=== PATIENT | female | born 1970 | race Hispanic/Latino ===

== ENCOUNTER 2019-11-21 13:46 | Emergency (ER) | payer OTHER ==
[~2019-11-21] VITALS: Ht 157.5 cm; Wt 70.3 kg
[~2019-11-21 13:46] MED LIST: NO MEDS
--- OUTSIDE RECORDS SUMMARY | 2019-11-21 13:50 | XMS REPORT | Encounter Summary ---
Author Organization Unknown Address [address] [place] [address] Phone [phone] Care Team Providers Care Motorboat Mechanic Inboard/Outboard Name Role Phone Dr. Harsh Hicks 3 [phone] Reason for Visit Bilateral knee pain/problem; other - see typed reason Instructions 1. Low back pain XR, lumbar spine 2. Bilateral knee pain XR, knee, 1 or 2 view - [place]an Speaking Please call patient and schedule her appointment. 3. Paresthesia of upper limb electromyogram/nerve conduction referral - *Please call the patient and schedule 4. Screening for malignant neoplasm of breast MAMMO, screening, digital, bilateral - [place]an Speaking Please call patient and schedule her an appointment. 5. Screening for malignant neoplasm of colon fecal occult blood, stool colonoscopy referral - [place]an Speaking Please call patient and schedule her an appointment. 6. Screening for malignant neoplasm of cervix gynecology referral - [place]an Speaking Please call patient and schedule her an appointment. 7. Immunization Adacel (Tdap Adolesn/Adult)(PF)2 Lf-(2.5-5-3-5)-5 Lf/0.5 mL IM syringe 8. Body mass index 25-29 - overweight aprenda acerca del peso saludable - [learning about healthy weight] 9. Overweight Discussion Note: None recorded. Plan of Care Reminders Provider Appointments None recorded. Lab Fecal Occult Blood, Stool 03/10/2019 [facility] Laboratory Referral Colonoscopy Referral 03/10/2019 [facility] Gynecology Referral 03/10/2019 Dima Sidhu Sr., MD Electromyogram/nerve Conduction Referral 03/10/2019 [facility] [employer] (Neurology) Procedures None recorded. Surgeries None recorded. Imaging MAMMO, Screening, Digital, Bilateral 03/10/2019 [facility] XR, Knee, 1 or 2 View 03/10/2019 [facility] Scheduling XR, Lumbar Spine 03/10/2019 [facility] Central Scheduling Medications Name Start Date deflazacort 6 mg tablet Take 1 tablet every day by oral route for 14 days. Medications Administered None recorded. Vitals Height Weight BMI Blood Pressure 5 ft 2 in 161.2 lbs 29.5 kg/m2 126/68 mm[Hg] Lab Results None recorded. Allergies Code Code System Name Reaction Severity Status Onset NKDA Problems No Known Problems Procedures Date Name Performed by Hysterectomy (Partial) Information not available 03/10/2019 MAMMO, Screening, Digital, Bilateral [facility] [address] [place] [address] (Work Place) 03/10/2019 XR, Knee, 1 or 2 View [facility] Scheduling [address] [place] [address] (Work Place) 03/10/2019 XR, Lumbar Spine [facility] Scheduling [address] [place] [address] (Work Place) Vaccine List Vaccine Type Tdap 03/10/20190.5 mL Social History Smoking Status Never Smoker Past Encounters 03/10/2019 Low Back Pain; Bilateral Knee Pain; Paresthesia of Upper Limb; Screening for Malignant Neoplasm of Breast; Screening for Malignant Neoplasm of Colon; Screening for Malignant Neoplasm of Cervix; Immunization; Body Mass Index 25-29 - Overweight; Overweight Harsh Cameron Morse MD: [address] [place] [address], Ph. History of Present Illness Note:Bilateral knee pain since 2 years ago, getting progressively worse since 2 weeks ago. Concomitantly, bilateral knee swelling. Denies erythema or warmth. Fluid was drained in [place] 2 weeks ago and she received steroid injections in both knees. Pain intensity today: 5-9/10. <div>L arm numbness and tingling since 1 week ago. Denies wrist pain. </div> Review of Systems Comprehensive General Adult ROS Reported By: Patient Constitutional: Constitutional: no fever Eyes: Eyes: no vision change Cardiovascular: Cardiovascular: no chest pain, no palpitations, no lightheadedness Respiratory: Respiratory: no cough, no wheezing, no shortness of breath Gastrointestinal: Gastrointestinal: no abdominal pain, no nausea, no vomiting, no constipation, no diarrhea Musculoskeletal: Musculoskeletal: no swelling in the extremities, muscle aches, arthralgias/joint pain, back pain Integumentary: Skin: no rashes Neurologic: Neurologic: no loss of consciousness, no headaches Psychiatric: Psych: no depression, no alcohol abuse, no anxiety, no suicidal thoughts Endocrine: Endocrine: no fatigue Physical Exam General Adult Exam (male) Reported By: Patient Constitutional: General Appearance: healthy-appearing, overweight. Level of Distress: NAD. Ambulation: ambulating normally Psychiatric: Insight: good judgement. Mental Status: active and alert, normal mood, normal affect. Orientation: to time, to place, to person. Memory: recent memory normal, remote memory normal Eyes: Lids and Conjunctivae: non-injected, no discharge Neck: Neck: supple, trachea midline. Thyroid: no enlargement, non-tender Lungs: Auscultation: breath sounds normal Cardiovascular: Heart Auscultation: RRR, normal S1, normal S2, no murmurs. Neck vessels: no carotid bruits Musculoskeletal:: Motor Strength and Tone: normal, normal tone. Joints, Bones, and Muscles: normal movement of all extremities, no contractures, no bony abnormalities, no malalignment; KNEES: tenderness with palpation in the joint line. Bilateral swelling. No erythema or warmth. Negative anterior and posterior drawer signs. Normal valgus and varus stress test.L WRIST: positive Tinel's sign Neurologic: Gait and Station: normal gait Skin: Inspection and palpation: no rash, no lesions Back: Thoracolumbar Appearance: ; tenderness with palpation in the lumbar area. Normal ROM
--- OUTSIDE RECORDS SUMMARY | 2019-11-21 13:50 | XMS REPORT | Encounter Summary ---
Author Organization Unknown Address [address] [place] [address] Phone [phone] Care Team Providers Care Catholic Priest Name Role Phone Dr. Harsh Hicks 3 [phone] Beau Carter MD 110 [phone] Reason for Visit Annual physical - female Instructions 1. Adult health examination CBC w/ auto diff CMP, serum or plasma lipid panel, serum TSH, serum or plasma urinalysis, dipstick 2. Microscopic hematuria urinalysis complete, reflex culture 3. Menopausal flushing FSH (follicle-stimulating hormone), serum 4. Osteoarthritis of knee 5. Screening for malignant neoplasm of colon Discussion Note: None recorded. Patient educational handouts: No information available. Plan of Care Reminders Provider Appointments None recorded. Lab CBC W/ Auto Diff 04/18/2019 [facility] Laboratory CMP, Serum or Plasma 04/18/2019 [facility] Laboratory Lipid Panel, Serum 04/18/2019 [facility] Laboratory TSH, Serum or Plasma 04/18/2019 [facility] Laboratory FSH (Follicle-stimulating Hormone), Serum 04/18/2019 [facility] Laboratory Urinalysis, Dipstick 04/18/2019 [facility] Urinalysis Complete, Reflex Culture 04/18/2019 [facility] Laboratory Referral None recorded. Procedures None recorded. Surgeries None recorded. Imaging None recorded. Medications Name Start Date meloxicam 15 mg tablet Take 1 tablet every day by oral route. Medications Administered None recorded. Vitals Height Weight BMI Blood Pressure 5 ft 2 in 163.3 lbs 29.9 kg/m2 128/80 mm[Hg] Lab Results Date Name Specimen Result Interpretation Description Value Range Status Address Urinalysis, Dipstick Color Glucose negative [facility] ([facility]) Guy: [address] [facility] [place] Color Bilirubin negative [facility]) Guy: [address] [facility] [place] Color Ketones negative [facility]) Guy: [address] [place] Color Specific [place] 1.030 [facility] ([facility] Guy: [address] [place] Color Blood moderate [facility] Guy: [address] [place] Color PH 5.0 [facility] Guy: [address] [place] Color Protein negative [facility] ([facility]) Guy: [address] [place] Color Urobilinogen 0.2 [facility] ([facility]) Guy: [address] [place] Color Nitrites negative [facility] ([facility]) Guy: [address] [place] Color Leukocytes negative [facility] ([facility]) Guy: [address] [place] Allergies Code Code System Name Reaction Severity Status Onset NKDA Problems No Known Problems Procedures Date Name Performed by Hysterectomy (Partial) Information not available Vaccine List Vaccine Type Tdap 03/10/20190.5 mL Social History Tobacco Smoking Status Never Smoker Past Encounters 04/18/2019 Adult Health Examination; Microscopic Hematuria; Menopausal Flushing; Osteoarthritis of Knee; Screening for Malignant Neoplasm of Colon Harsh Morse MD: [address] [place] [phone], Ph. History of Present Illness Note:Coming for a physical exam. Review of Systems Comprehensive General Adult ROS Reported By: Patient Constitutional: Constitutional: no fever, no night sweats, no significant weight gain, no significant weight loss, no exercise intolerance Eyes: Eyes: no dry eyes, no vision change, no irritation ENMT: Ears: no difficulty hearing, no ear pain. Nose: no frequent nosebleeds, no nose problems, no sinus problems. Mouth/Throat: no sore throat, no bleeding gums, no snoring, no dry mouth, no mouth ulcers, no oral abnormalities, no teeth problems Cardiovascular: Cardiovascular: no chest pain, no arm pain on exertion, no shortness of breath when walking, no shortness of breath when lying down, no palpitations, no known heart murmur, no lightheadedness Respiratory: Respiratory: no cough, no wheezing, no shortness of breath, no coughing up blood, no sleep apnea Gastrointestinal: Gastrointestinal: no abdominal pain, no nausea, no vomiting, no constipation, normal appetite, no diarrhea, not vomiting blood, no dyspepsia, no GERD Genitourinary: Genitourinary: no incontinence, no difficulty urinating, no hematuria, no increased frequency Musculoskeletal: Musculoskeletal: no muscle aches, no muscle weakness, no back pain, no swelling in the extremities, arthralgias/joint pain Integumentary: Skin: no abnormal mole, no jaundice, no rashes, no laceration Neurologic: Neurologic: no loss of consciousness, no weakness, no numbness, no seizures, no dizziness, no migraines, no headaches, no tremor Psychiatric: Psych: no depression, no sleep disturbances, feeling safe in a relationship, no alcohol abuse, no anxiety, no hallucinations, no suicidal thoughts Endocrine: Endocrine: no fatigue Hematologic/Lymphatic: Hematologic/Lymphatic no swollen glands, no bruising, no excessive bleeding Allergic/Immunologic: Allergy/Immunologic: no runny nose, no sinus pressure, no itching, no hives, no frequent sneezing Physical Exam General Adult Exam (male) Reported By: Patient Constitutional: General Appearance: healthy-appearing, overweight. Level of Distress: NAD. Ambulation: ambulating normally Psychiatric: Insight: good judgement. Mental Status: active and alert, normal mood, normal affect. Orientation: to time, to place, to person. Memory: recent memory normal, remote memory normal Head: Head: normocephalic, atraumatic Eyes: Lids and Conjunctivae: non-injected, no discharge. EOM: EOMI ENMT: Ears: TMs clear. Nose: no sinus tenderness. Lips, Teeth, and Gums: no mouth or lip ulcers. Oropharynx: moist mucous membranes Neck: Neck: supple, trachea midline. Thyroid: no enlargement, non-tender Lungs: Auscultation: breath sounds normal Cardiovascular: Heart Auscultation: RRR, normal S1, normal S2, no murmurs. Neck vessels: no carotid bruits Abdomen: Inspection and Palpation: soft, non-distended, no tenderness, no guarding Musculoskeletal:: Motor Strength and Tone: normal, normal tone. Joints, Bones, and Muscles: normal movement of all extremities, no contractures, no bony abnormalities, no malalignment. Extremities: no edema Neurologic: Gait and Station: normal gait. Cranial Nerves: grossly intact. Sensation: grossly intact. Reflexes: DTRs 2+ bilaterally throughout. Coordination and Cerebellum: [id number] intact, no tremor Skin: Inspection and palpation: no rash, no lesions Back: Thoracolumbar Appearance: normal curvature
--- OUTSIDE RECORDS SUMMARY | 2019-11-21 13:50 | XMS REPORT ---
Author Author [facility] Address Unknown Phone Unavailable Care Team Providers Care Rabbit Fancier Name Role Phone JOYCE CASPER Unavailable Unavailable Payers Payer Name Policy Type Policy Number Effective Date Expiration Date Problems This patient has no known problems. Allergies, Adverse Reactions, Alerts This patient has no known allergies or adverse reactions. Medications This patient has no known medications. Results Test Description Test Time Test Comments Text Results Atomic Results Result Comments US RENAL RETROPERITONEAL COMP 2019-06-26 11:05:00 [place] [address] Patient Name: NESHA TELLO MR #: [id number] : 1970 Age/Sex: 49/F Req #: [id number] Adm Physician: Ordered by: JOYCE CASPER MD Report #: [id number] Location: Room/Bed: Procedure: [id number] US/US RENAL RETROPERITONEAL COMP Exam Date: 06/26/19 Exam Time: 822 REPORT STATUS: Signed EXAM: Renal Ultrasound INDICATION: [id number] MICROSCOPIC HEMATURIA COMPARISON: None TECHNIQUE: Transverse and longitudinal images of the kidneys and bladder were obtained. FINDINGS: Right Kidney: Length: 11.6 cm Appearance: Normal echogenicity. Collecting system: Moderate hydronephrosis Stones: None Cyst/Mass: None Left Kidney: Length: 11.2 cm Appearance: Normal echogenicity. Collecting system: No hydronephrosis Stones: None Cyst/Mass: None Bladder: No mass or calculi. Bilateral ureteral jets seen. Prevoid volume estimate of 92.2 cc IMPRESSION: Moderate right hydronephrosis. No renal calculi. Signed by: Torres Coates MD on 06/26/2019 11:06 AM Dictated By: TORRES COATES MD 05 Transcribed By: YA on 06/26/191105 COPY TO: JOYCE CASPER MD ABDOMEN-1VIEW (KUB) 2019-06-26 09:22:00 [place] [address] Patient Name: NESHA TELLO MR #: [id number] : 1970 Age/Sex: 49/F Req #: [id number] Adm Physician: Ordered by: JOYCE CASPER MD Report #: [id number] Location: Room/Bed: Procedure: [id number] DX/ABDOMEN-1VIEW (KUB) Exam Date: Exam Time: REPORT STATUS: Signed Exam: KUB - 2 views Indication: Hematuria Comparison: CT abdomen and pelvis of 02/24/2015 Findings: No radiographically apparent renal calculi. The 6 mm calcification in the right pelvis (superior to a more rounded 6 mm phlebolith) could correspond with the right distal ureteral calculus seen on prior CT of 02/24/2015 or alternatively represent new interval phlebolith formation. The osseous structures appear unremarkable. Nonobstructive bowel gas pattern. No free air. Impression: 6 mm calcification in the right pelvis superior to a more rounded 6 mm phlebolith may correspond with previously seen right distal ureteral calculus. Signed by: Torres Coates MD on 06/26/2019 9:25 AM Dictated By: TORRES COATES MD 4 Transcribed By: YA on 06/26/19924 COPY TO: JOYCE CASPER MD - XR KNEE 1 OR 2 V BI 2019-03-17 12:41:00 FAX: Harsh Jay [phone] [place]: O St: REG Name: NESHA TELLO [facility] : 1970 Age/S: 49/F [address] [facility] Unit #: [id number] Loc: [place] [address] Phys: Harsh Armijo MD Acct: [id number] Dis Date: Status: REG CL PHONE #: [phone] Exam Date: 03/17/2019 1150 FAX #: [phone] Reason: M25.561 EXAMS: CPT CODE: [id number] XR KNEE 1 [place] 2 [place] [address] TECHNIQUE - XR KNEE 1 OR 2 V BI . COMPARISON: None provided. HISTORY: 49 years Female M25.561 FINDINGS: Bones: No acute fracture. No dislocation. No suspicious bone lesion. Joints: Mild osteophytes. Mild joint space reduction. No subchondral bone lesions. No bony erosions. Soft tissues: No significant abnormalities. Other: None. IMPRESSION: No acute fracture right or left knee. Mild osteoarthritic changes. at 1241 Reported and signed by: Randall Vargas M.D. CC: Harsh Armijo MD Technologist: Miryam Hernandez (R)scrd Date/Time/By: 03/17/2019 (9750) : By: Pancho Vizcaino D/T: S: 03/17/2019 (6356) PAGE 1 Signed Report - XR L-SPINE 4 + VIEWS 2019-03-17 12:38:00 FAX: Y Harsh Armijo [phone] [place]: O St: REG Name: NESHA TELLO [facility] : 1970 Age/S: 49/F [address] [facility] Unit #: [id number] Loc: [place] [address] Phys: Hasrh Armijo MD Acct: [id number] Dis Date: Status: REG CLI PHONE #: [phone] Exam Date: 03/17/2019 1220 FAX #: [phone] Reason: M54.5 EXAMS: CPT CODE: [id number] XR L-SPINE 4 + VIEWS [id number] TECHNIQUE - XR L-SPINE 4 + VIEWS . COMPARISON: None provided. HISTORY: 49 years Female M54.5 FINDINGS: Bones: Five non-rib bearing lumbar vertebrae. Multilevel osteophytes. No compression fractures. No suspicious focal bone lesion. Alignment: No spondylolisthesis. Intervertebral discs: Multilevel disc height reduction. Facet joints: Multilevel hypertrophic changes in lumbar spine. SI joints: No significant abnormalities. Soft tissues: No abnormalities. Other: None. IMPRESSION: Multilevel degenerative changes. No acute fractures. at 9858 Reported and signed by: Randall Vargas M.D. CC: Harsh Armijo MD Technologist: Nicole Varela; STUDENT TECHNOLOGIST Davidscrd Date/Time/By: 03/17/2019 (0813) : By: Pancho Orig Print D/T: S: 03/17/2019 (7892) PAGE 1 Signed Report
[2019-11-21] MEDS ORDERED: SODIUM CHLORIDE 0.9% 1000ML 1,000 ML IV STA (14:37)
[2019-11-21 15:14] LABS: CLARITY,URINE CLEAR (CLEAR); COLOR,URINE YELLOW (YELLOW)
[2019-11-21 15:15] LABS: BASOPHILS % 0.5 % (0.0-1.0); BILIRUBIN,URINE NEGATIVE (NEGATIVE); EOSINOPHILS # (AUTO) 0.1 (0.0-0.4); EOSINOPHILS % 0.8 % (0.0-6.0); HEMATOCRIT 45.8 % (34.2-44.1); HEMOGLOBIN 15.7 g/dL (12.0-16.0); KETONES,URINE NEGATIVE (NEGATIVE); LEUKOCYTE ESTERASE ,URINE NEGATIVE (NEGATIVE); LYMPHOCYTES # (AUTO) 2.2 (1.0-3.2); LYMPHOCYTES % 35.1 % (18.0-39.1); MEAN CORPUSCULAR HEMOGLOBIN 32.6 pg (28-32); MEAN CORPUSCULAR HGB CONC 34.3 g/dL (31-35); MONOCYTES # (AUTO) 0.7 (0.2-0.8); MONOCYTES % 11.4 % (4.4-11.3); NEUTROPHILS # (AUTO) 3.3 (2.1-6.9); NEUTROPHILS % 51.9 % (38.7-80.0); NITRITE,URINE NEGATIVE (NEGATIVE); PLATELET COUNT 257 x10e3/uL (140-360); PROTEIN,URINE DIPSTICK NEGATIVE (NEGATIVE); RED BLOOD COUNT 4.82 x10e6/uL (3.6-5.1); RED CELL DISTRIBUTION WIDTH 12.8 % (11.7-14.4); URINE UROBILINOGEN 0.2 mg/dL (0.2 - 1)
[2019-11-21 15:25] LABS: BACTERIA,URINE MODERATE /HPF; EPITHELIAL CELLS,URINE MODERATE /LPF
[2019-11-21 15:32] LABS: ALANINE AMINOTRANSFERASE 50 IU/L (0-55); ALBUMIN 4.6 g/dL (3.5-5.0); ALKALINE PHOSPHATASE 116 IU/L (40-150); ANION GAP 10.4 mmol/L (8-16); BLOOD UREA NITROGEN 11 mg/dL (7-26); BUN/CREATININE RATIO 16 (6-25); CALCIUM 9.8 mg/dL (8.4-10.2); CARBON DIOXIDE 30 mmol/L (22-29); CHLORIDE 101 mmol/L (98-107); CREATININE, SERUM 0.69 mg/dL (0.57-1.11); EST GLOMERULAR FILTRATION RATE > 60 ML/MIN (60-); GLUCOSE 84 mg/dL (74-118); LIPASE 43 U/L (8-78); POTASSIUM 3.4 mmol/L (3.5-5.1); SODIUM 138 mmol/L (136-145)
[2019-11-21] MEDS ORDERED: KETOROLAC TROMETHAMINE 30 MG/ML VIAL IV STA (15:44)
--- NOTE | 2019-11-21 18:54 | Diagnostic Imaging Report ---
EXAM: CT Abdomen and Pelvis WITH contrast INDICATION: Abdominal pain, back pain ^abd pain ^[id number] ^1735 COMPARISON: CT abdomen/pelvis, 02/24/2015 TECHNIQUE: Abdomen and pelvis were scanned utilizing a multidetector helical scanner from the lung base to the pubic symphysis after administration of IV contrast. Coronal and sagittal reformations were obtained. Routine protocol was performed. Scan was performed when during portal venous phase. Dose modulation, iterative reconstruction, and/or weight based adjustment of the mA/kV was utilized to reduce the radiation dose to as low as reasonably achievable. IV CONTRAST: 100 mL of Isovue-370 ORAL CONTRAST: None(DLP x 0.015 x size factor) RADIATION DOSE: Total DLP: 311.54 mGy*cm Estimated effective dose: mSv COMPLICATIONS: None FINDINGS: LINES and TUBES: None. LOWER THORAX: Lung bases are clear. Heart size normal. HEPATOBILIARY: No focal hepatic lesions. No biliary ductal dilation. GALLBLADDER: No radio-opaque stones or sludge. No wall thickening. SPLEEN: No splenomegaly. PANCREAS: No focal masses or ductal dilatation. ADRENALS: No adrenal nodules KIDNEYS/URETERS: Kidneys enhance symmetrically. No hydronephrosis. No cystic or solid mass lesions. No stones. GI TRACT: No abnormal distention, wall thickening, or evidence of bowel obstruction. The terminal ileum appears mildly distended and fluid-filled but without inflammatory stranding or wall thickening. The appendix is partially visualized and appears unremarkable. No inflammatory stranding is seen in the right lower quadrant. PELVIC ORGANS/BLADDER: Urinary bladder unremarkable. No discrete abnormal mass in the pelvis. There is a 1.8 cm cystic structure in the left adnexa. There is a 1.8 cm fluid-filled tubular structure in the right adnexa that may represent hydrosalpinx. There is no surrounding inflammatory stranding. LYMPH NODES: No dominant lymph node mass is seen in the abdomen, retroperitoneum or pelvis. VESSELS: Abdominal aorta, IVC and portal system unremarkable. Celiac and SMA are patent. PERITONEUM / RETROPERITONEUM: No pneumoperitoneum or ascites. BONES: No acute or suspicious bony lesions. Degenerative change at L5-S1. SOFT TISSUES: Superficial surrounding soft tissue unremarkable. IMPRESSION: 1. There is a right hydrosalpinx noted. No surrounding inflammatory stranding. 2. The appendix appears normal. 3. No other CT evidence for acute abdominal or pelvic pathology. Staff: Strax Signed by: Dr. Lico Carter M.D. on 11/21/2019 6:51 PM
[2019-11-21] MEDS ORDERED: IOPAMIDOL 370 MG/ML 200 ML INFUS..BTL INJ ONE (19:31)
[2019-11-21] MEDS ORDERED: SODIUM CHLORIDE 0.9% 50ML 50 ML ONE (19:31)
== END 2019-11-21 19:17 | disposition home or self-care (01) ==
LOC: ER 13:46
DX: R10.31 Right lower quadrant pain (principal); R10.32 Left lower quadrant pain; R11.0 Nausea
CPT/HCPCS: 36415; 74177; 80053; 81001; 83690; 85025; 99284; J1885; J7030; Q9967

== ENCOUNTER 2021-05-13 05:42 | Observation (INO) | payer OTHER ==
[2021-05-09 08:52] LABS: BASOPHILS % 0.4 % (0.0-1.0); EOSINOPHILS # (AUTO) 0.1 (0.0-0.4); EOSINOPHILS % 1.7 % (0.0-6.0); HEMATOCRIT 40.7 % (34.2-44.1); HEMOGLOBIN 13.9 g/dL (12.0-16.0); LYMPHOCYTES # (AUTO) 2.7 (1.0-3.2); LYMPHOCYTES % 37.7 % (18.0-39.1); MEAN CORPUSCULAR HEMOGLOBIN 32.2 pg (28-32); MEAN CORPUSCULAR HGB CONC 34.2 g/dL (31-35); MEAN CORPUSCULAR VOLUME 94.2 fL (81-99); MONOCYTES # (AUTO) 0.5 (0.2-0.8); NEUTROPHILS # (AUTO) 3.8 (2.1-6.9); NEUTROPHILS % 52.8 % (38.7-80.0); PLATELET COUNT 209 x10e3/uL (140-360); RED BLOOD COUNT 4.32 x10e6/uL (3.6-5.1); RED CELL DISTRIBUTION WIDTH 12.5 % (11.7-14.4)
[~2021-05-13] VITALS: Ht 157.5 cm; Wt 76.7 kg
[~2021-05-13 05:42] MED LIST changes: +NAPROXEN250 MG PO; +VIT D PO
[2021-05-13] MEDS ORDERED: CELECOXIB 200 MG CAP ONE (06:36)
[2021-05-13] MEDS ORDERED: DEXAMETHASONE SOD PHOS 10 MG/1 ML VIAL ONE (06:37)
[2021-05-13] MEDS ORDERED: SODIUM CHLORIDE 0.9% 50ML 100 ML ONE (06:37)
[2021-05-13] MEDS ORDERED: GABAPENTIN 300 MG CAP ONE (06:37)
[2021-05-13] MEDS ORDERED: Vancomycin IV 1,000 MG ONE (06:51)
[2021-05-13] MEDS ORDERED: SODIUM CHLORIDE 0.9% 500ML 500 ML ONE (06:52)
[2021-05-13] MEDS ORDERED: TRANEXAMIC ACID 1,000 MG/10 ML ML ONE (06:52)
[2021-05-13] MEDS ORDERED: OMEPRAZOLE40 MG PO (06:55)
[2021-05-13] MEDS ORDERED: ROPIVACAINE 246.25 MG, EPINEPHRINE HCL 1:1000 1ML 0.5 MG, CLONIDINE HCL 0.08 MG, KETORO... INJ ONE ×5 (07:30)
[2021-05-13] MEDS ORDERED: DOCUSATE SODIUM 100 MG CAP PO PRN (08:45)
[2021-05-13] MEDS ORDERED: ACETAMINOPHEN 650 MG SUPP PR PRN (08:45)
[2021-05-13] MEDS ORDERED: ONDANSETRON HCL INJ 2MG/ML 2ML 2 MG/ML VIAL IV PRN (08:45)
[2021-05-13] MEDS ORDERED: KETOROLAC TROMETHAMINE 30 MG/ML VIAL IV PRN (08:45)
[2021-05-13] MEDS ORDERED: DIPHENHYDRAMINE HCL INJ 50 MG/ML VIAL IV PRN (08:45)
[2021-05-13] MEDS ORDERED: HYDROCODONE/APAP 7.5MG-325MG 1 EA TAB PO PRN (08:45)
[2021-05-13] MEDS ORDERED: SODIUM CHLORIDE 0.9% 1000ML 1,000 ML IV SCH (08:45)
[2021-05-13] MEDS ORDERED: HYDROCODONE/APAP 5MG-325MG TAB PO PRN (08:45)
[2021-05-13] MEDS ORDERED: MEPERIDINE HCL INJ 25 MG/ML VIAL ONE (09:51)
[2021-05-13 10:05] VITALS: BP 149/75
[2021-05-13 12:29] VITALS: BP 149/75
[2021-05-13 12:30] VITALS: BP 149/75
[2021-05-13 12:39] VITALS: BP 149/75
[2021-05-13] MEDS ORDERED: Cefazolin 1 GM in SODIUM CHLORIDE 0.9% 50ML 50 ML IV SCH (14:00)
[2021-05-13 14:56] LABS: BASOPHILS % 0.2 % (0.0-1.0); HEMATOCRIT 38.8 % (34.2-44.1); HEMOGLOBIN 12.9 g/dL (12.0-16.0); LYMPHOCYTES # (AUTO) 0.5 (1.0-3.2); LYMPHOCYTES % 3.4 % (18.0-39.1); MEAN CORPUSCULAR HEMOGLOBIN 32.3 pg (28-32); MEAN CORPUSCULAR HGB CONC 33.2 g/dL (31-35); MEAN CORPUSCULAR VOLUME 97.2 fL (81-99); MONOCYTES # (AUTO) 0.2 (0.2-0.8); MONOCYTES % 1.1 % (4.4-11.3); NEUTROPHILS # (AUTO) 15.1 (2.1-6.9); NEUTROPHILS % 94.7 % (38.7-80.0); PLATELET COUNT 196 x10e3/uL (140-360); RED BLOOD COUNT 3.99 x10e6/uL (3.6-5.1); RED CELL DISTRIBUTION WIDTH 12.9 % (11.7-14.4)
[2021-05-13 15:46] VITALS: BP 108/50
[2021-05-13] MEDS ORDERED: CELECOXIB 200 MG CAP PO SCH (17:00)
[2021-05-13] MEDS ORDERED: ASPIRIN81 MG PO (17:28)
[2021-05-13] MEDS ORDERED: ASPIRIN 325 MG TAB PO SCH (18:45)
[2021-05-13] MEDS ORDERED: ZOLPIDEM TARTRATE 5 MG TAB PO PRN (21:00)
[2021-05-14] MEDS ORDERED: ACETAMINOPHEN 1000 MG/100 ML IV PRN (08:45)
== END 2021-05-13 18:12 | disposition home or self-care (01) ==
LOC: OR 05:42 → PACU V 08:48 → MED/SURG 09:59
PROVIDERS: ADMIT Specialist; ATTEND Specialist
DX: M17.0 Bilateral primary osteoarthritis of knee (principal); Z20.822 Contact with and (suspected) exposure to COVID-19; K21.9 Gastro-esophageal reflux disease without esophagitis; Z01.818 Encounter for other preprocedural examination
CPT/HCPCS: 27447; 36415 ×2; 73560; 85025 ×2; 86850; 86900; 93005; 97110; 97116; 97161; 97530; C1713 ×2; C1776 ×3; G0378; J0171; J0690; J1100; J1885; J2175; J2795; J3370; J7030; J7040; U0002; 86920

== ENCOUNTER 2021-05-22 18:48 | Emergency (ER) | payer OTHER ==
[~2021-05-22] VITALS: Ht 309.9 cm; Wt 76.7 kg
[~2021-05-22 18:48] MED LIST changes: +ASPIRIN81 MG PO; +OMEPRAZOLE40 MG PO
[2021-05-22] MEDS ORDERED: MORPHINE SULFATE INJ 4 MG/ML INJ 1ML IV STA (19:08)
[2021-05-22] MEDS ORDERED: SODIUM CHLORIDE 0.9% 1000ML 1,000 ML IV STA (19:08)
[2021-05-22] MEDS ORDERED: ONDANSETRON HCL INJ 2MG/ML 2ML 2 MG/ML VIAL IV STA (19:08)
[2021-05-22 19:43] LABS: BASOPHILS # (AUTO) 0.1 (0.0-0.1); BASOPHILS % 0.5 % (0.0-1.0); EOSINOPHILS # (AUTO) 0.3 (0.0-0.4); EOSINOPHILS % 2.8 % (0.0-6.0); HEMATOCRIT 38.7 % (34.2-44.1); HEMOGLOBIN 12.7 g/dL (12.0-16.0); LYMPHOCYTES # (AUTO) 2.5 (1.0-3.2); LYMPHOCYTES % 25.7 % (18.0-39.1); MEAN CORPUSCULAR HEMOGLOBIN 32.6 pg (28-32); MEAN CORPUSCULAR HGB CONC 32.8 g/dL (31-35); MEAN CORPUSCULAR VOLUME 99.5 fL (81-99); MONOCYTES # (AUTO) 0.7 (0.2-0.8); MONOCYTES % 7.4 % (4.4-11.3); NEUTROPHILS % 62.9 % (38.7-80.0); PLATELET COUNT 332 x10e3/uL (140-360); RED BLOOD COUNT 3.89 x10e6/uL (3.6-5.1); RED CELL DISTRIBUTION WIDTH 12.9 % (11.7-14.4)
[2021-05-22 19:57] LABS: INR 0.91; PARTIAL THROMBOPLASTIN TIME 29.7 seconds (23.8-35.5); PROTHROMBIN TIME 12.4 seconds (11.9-14.5)
[2021-05-22 19:59] LABS: ALANINE AMINOTRANSFERASE 27 IU/L (0-55); ALBUMIN 4.1 g/dL (3.5-5.0); ALBUMIN/GLOBULIN RATIO 1.1 (0.8-2.0); ALKALINE PHOSPHATASE 111 IU/L (40-150); ANION GAP 15.3 mmol/L (8-16); BLOOD UREA NITROGEN 18 mg/dL (7-26); BUN/CREATININE RATIO 21 (6-25); CARBON DIOXIDE 26 mmol/L (22-29); CHLORIDE 104 mmol/L (98-107); CREATININE, SERUM 0.86 mg/dL (0.57-1.11); EST GLOMERULAR FILTRATION RATE 69 ML/MIN (60-); GLUCOSE 133 mg/dL (74-118); POTASSIUM 4.3 mmol/L (3.5-5.1); SODIUM 141 mmol/L (136-145)
[2021-05-22 22:32] VITALS: BP 127/53
== END 2021-05-22 22:37 | disposition home or self-care (01) ==
LOC: ER 20:08
DX: Z96.651 Presence of right artificial knee joint (principal); M25.561 Pain in right knee
CPT/HCPCS: 36415; 73562; 80053; 83605; 84702; 85025; 85610; 85730; 87040; 93971; 99284; J2270; J2405; J7030

== ENCOUNTER 2021-06-30 08:42 | Outpatient (RCR) | payer OTHER | END 2021-07-06 | LOC: PT 08:42 | PROVIDERS: ATTEND Physician Assistant | DX: Z47.1 Aftercare following joint replacement surgery (principal); Z96.651 Presence of right artificial knee joint ==

== ENCOUNTER → 2021-08-05 | Outpatient (RCR) | payer OTHER | LOC: PT 07-10 09:08 | PROVIDERS: ATTEND Physician Assistant | DX: Z47.1 Aftercare following joint replacement surgery (principal); Z96.651 Presence of right artificial knee joint ==

== ENCOUNTER 2021-08-21 09:00 | Outpatient (RCR) | payer OTHER | END 2021-09-05 | LOC: PT 09:00 | PROVIDERS: ATTEND Physician Assistant | DX: Z47.1 Aftercare following joint replacement surgery (principal); Z96.651 Presence of right artificial knee joint ==